=== PATIENT | female | born 1930 | race Caucasian/White ===

== ENCOUNTER 2016-09-17 11:07 | Inpatient (IN) | payer OTHER ==
[~2016-09-17] VITALS: Ht 162.6 cm; Wt 68.0 kg
[2016-09-17] MEDS ORDERED: COREG 25MG TAB25 MG PO (12:32)
[2016-09-17] MEDS ORDERED: MULTI-DAY VITA1 EACH PO (12:33)
[2016-09-17] MEDS ORDERED: ARTHRITIS PAIN650 M1 PO (12:34)
[2016-09-17] MEDS ORDERED: NEURONTIN100 MG PO (12:34)
[2016-09-17] MEDS ORDERED: VESICARE 5 MG TA5 MG PO (12:35)
[2016-09-17] MEDS ORDERED: HYDROXYZINE HCL25 MG PO (12:35)
[2016-09-17] MEDS ORDERED: NORVASC 5 MG TAB5 MG PO (12:37)
[2016-09-17] MEDS ORDERED: ZOLOFT25 MG PO (12:37)
[2016-09-17] MEDS ORDERED: COLACE 100MG C100 MG PO (12:38)
[2016-09-17] MEDS ORDERED: PROTONIX 40 MG40 M1 PO (12:39)
[2016-09-17] MEDS ORDERED: ASPIR-LOW81 MG PO (12:40)
[2016-09-17] MEDS ORDERED: TOBRADEX EYE DRO5 ML OS (12:44)
[2016-09-17] MEDS ORDERED: VIROPTIC OS (12:44)
[2016-09-17] MEDS ORDERED: [UNRECOGNIZED DRUG - CODE] OU (12:45)
[2016-09-17 15:23] LABS: HEMOGLOBIN 12.3 gm/dl (12.3-15.3); RED BLOOD COUNT 4.04 M/UL (4.00-5.10); WHITE BLOOD COUNT 6.2 K/UL (4.5-11.0)
[2016-09-17 15:48] LABS: BUN/CREATININE RATIO 19 (0-10)
[2016-09-17] MEDS ORDERED: CARAFATE1 GM PO (17:42)
[2016-09-19 05:22] LABS: HEMOGLOBIN 11.1 gm/dl (12.3-15.3); RED BLOOD COUNT 3.68 M/UL (4.00-5.10); WHITE BLOOD COUNT 4.7 K/UL (4.5-11.0)
[2016-09-19 05:39] LABS: BUN/CREATININE RATIO 22 (0-10)
[2016-09-20 05:48] LABS: HEMOGLOBIN 11.2 gm/dl (12.3-15.3); RED BLOOD COUNT 3.72 M/UL (4.00-5.10); WHITE BLOOD COUNT 4.6 K/UL (4.5-11.0)
[2016-09-20 06:02] LABS: BUN/CREATININE RATIO 20 (0-10)
[2016-09-22 05:44] LABS: HEMOGLOBIN 11.6 gm/dl (12.3-15.3); RED BLOOD COUNT 3.89 M/UL (4.00-5.10)
[2016-09-22 06:09] LABS: BUN/CREATININE RATIO 18 (0-10)
[2016-09-23 06:09] LABS: HEMOGLOBIN 11.8 gm/dl (12.3-15.3); RED BLOOD COUNT 3.94 M/UL (4.00-5.10); WHITE BLOOD COUNT 4.8 K/UL (4.5-11.0)
[2016-09-23 06:50] LABS: BUN/CREATININE RATIO 25 (0-10)
[2016-09-24 06:23] LABS: HEMOGLOBIN 11.8 gm/dl (12.3-15.3); RED BLOOD COUNT 3.88 M/UL (4.00-5.10); WHITE BLOOD COUNT 4.8 K/UL (4.5-11.0)
[2016-09-24 06:40] LABS: BUN/CREATININE RATIO 19 (0-10)
--- NOTE | 2016-09-24 12:27 | NUR ---
PT SITTING UP IN CHAIR IN HER ROOM WITH FAMILY AT BEDSIDE PT DENIES ANY CP AT THIS TIME AND STATES THAT SHE IS FEELING MUCH BETTER WCTM
[2016-09-25 05:59] LABS: HEMOGLOBIN 11.2 gm/dl (12.3-15.3); RED BLOOD COUNT 3.74 M/UL (4.00-5.10); WHITE BLOOD COUNT 4.4 K/UL (4.5-11.0)
[2016-09-25 06:26] LABS: BUN/CREATININE RATIO 17 (0-10)
[2016-09-26 05:59] LABS: HEMOGLOBIN 11.5 gm/dl (12.3-15.3); RED BLOOD COUNT 3.89 M/UL (4.00-5.10); WHITE BLOOD COUNT 4.5 K/UL (4.5-11.0)
[2016-09-26 06:19] LABS: BUN/CREATININE RATIO 23 (0-10)
[2016-09-27 05:36] LABS: HEMOGLOBIN 11.5 gm/dl (12.3-15.3); RED BLOOD COUNT 3.82 M/UL (4.00-5.10); WHITE BLOOD COUNT 4.5 K/UL (4.5-11.0)
[2016-09-27 05:59] LABS: BUN/CREATININE RATIO 24 (0-10)
== END 2016-09-27 12:40 | DRG 291 ==
LOC: M/S 11:07 → ZEROF 09-21 13:59 → M/S 09-27 12:40
PROVIDERS: Family Medicine; ADMIT Family Medicine
DX: I11.0 Hypertensive heart disease with heart failure (principal); J96.01 Acute respiratory failure with hypoxia; I50.33 Acute on chronic diastolic (congestive) heart failure; S23.41XA Sprain of ribs, initial encounter; W18.39XA Other fall on same level, initial encounter; I25.10 Atherosclerotic heart disease of native coronary artery without angina pectoris; I08.0 Rheumatic disorders of both mitral and aortic valves; R91.8 Other nonspecific abnormal finding of lung field; G62.9 Polyneuropathy, unspecified; R53.1 Weakness; E78.00 Pure hypercholesterolemia, unspecified; R07.9 Chest pain, unspecified; K21.9 Gastro-esophageal reflux disease without esophagitis; M51.34 Other intervertebral disc degeneration, thoracic region; M43.06 Spondylolysis, lumbar region; M51.36 Other intervertebral disc degeneration, lumbar region; Z91.81 History of falling; Z79.1 Long term (current) use of non-steroidal anti-inflammatories (NSAID); Z79.82 Long term (current) use of aspirin; Z79.899 Other long term (current) drug therapy; Y93.01 Activity, walking, marching and hiking; Y92.009 Unspecified place in unspecified non-institutional (private) residence as the place of occurrence of the external cause; Z96.611 Presence of right artificial shoulder joint; Z95.5 Presence of coronary angioplasty implant and graft; Z96.641 Presence of right artificial hip joint; Z85.528 Personal history of other malignant neoplasm of kidney
CPT/HCPCS: ECHO; 36415; 71010; 71020; 72110; 73502; 80048; 80053; 84132; 84484; 85027; 93005; 93306; 94640; 94664; 97110; 97116; 97530; 97535; J1650; J1940; Q0162; Q0177